=== PATIENT | male | born 1995 ===

== ENCOUNTER 2020-12-03 17:41 | Emergency (ER) | payer SELFPAY ==
[2020-12-03 20:42] VITALS: BP 111/80
== END 2020-12-03 18:30 ==
LOC: ED 17:41
DX: S41.112A Laceration without foreign body of left upper arm, initial encounter (principal); Z53.21 Procedure and treatment not carried out due to patient leaving prior to being seen by health care provider; X58.XXXA Exposure to other specified factors, initial encounter; Y93.89 Activity, other specified; Y92.89 Other specified places as the place of occurrence of the external cause; Y99.8 Other external cause status